=== PATIENT | female | born 1935 | race Caucasian/White ===

== ENCOUNTER → 2016-11-07 | Outpatient (CLI) | payer MEDICARE ==
[~2016-11-07] MED LIST: ANTIVERT 25MG25 MG PO; ASPIRIN 81M81 MG/TA2 PO; CELEXA 20MG20 MG/TAB PO; EFFEXOR-XR150 MG PO; FERROUS SULFAT325 MG PO; HCTZ 25MG TAB25 MG PO; MULTIPLE VITAMI1 TAB PO; MVI; NORCO 325 MG-51 TAB PO; PRILOSEC 20MG20 MG PO; VICODIN 5/5001 UDTAB PO; ZOVIRAX800 MG PO
== END ==
LOC: MC.RAD 13:40
DX: Z12.31 Encounter for screening mammogram for malignant neoplasm of breast (principal); N64.89 Other specified disorders of breast

== ENCOUNTER → 2016-11-10 | Outpatient (CLI) | payer MEDICARE | LOC: MC.RAD 09:27 | DX: N64.89 Other specified disorders of breast (principal); I70.8 Atherosclerosis of other arteries ==